=== PATIENT | female | born 1970 | race Caucasian/White ===

== ENCOUNTER → 2019-02-07 | Outpatient (CLI) | payer OTHER ==
[~2019-02-07] MED LIST: CETI5TAB2 PO; FENO54TA PO; LEXAPRO10 MG PO; METF500T16 PO; NAPR220C62 PO
--- NOTE | 2019-02-07 14:27 | KCIC ---
Bilateral digital screening mammograms: Reason for examination: Routine screening. Comparison is made to previous studies dated 08/05/2015 and 06/01/2014. Interpretation was made with the benefit of CAD. The skin and nipples show no abnormalities. No abnormal axillary lymph nodes are seen. The breast parenchyma shows scattered fibroglandular density. (Breast density: Category B.) There is a small nodular parenchymal density laterally in the left breast on cc view with no definite correlate on oblique view. Further evaluation with coned compression views and ultrasound is recommended. There are no other dominant masses, suspicious calcifications or architectural distortions. Impression: Small nodular density seen laterally on the left cc view with no definite correlate on MLO view. Recommend further evaluation with coned compression views and ultrasound. BI-RADS Category 0: Incomplete. Needs additional imaging evaluation. "Our facility is accredited by the [employer] Mammography [employer]." This patient's information has been entered into a reminder system for the patient to be notified with the results of her examination and a target date for the next mammogram. Electronically signed by: Katarina Adan MD (02/07/2019 2:24 PM) [id number]
--- NOTE | 2019-02-07 15:26 | KCIC ---
MRI study of the right forearm Clinical indications: Right forearm pain. Reduced range of motion and reduced hand strength. TECHNIQUE: Noncontrast MRI sequences of the right forearm were performed in all 3 planes. FINDINGS: No bone marrow edema or marrow infiltrative process or fracture is seen. There is a periarticular ganglion cyst measuring 21 mm in size just anterior to the radial scaphoid joint. It is located just lateral to and deep to the flexor carpi radialis tendon. No tenosynovitis is seen. No tendon rupture is evident. No muscle edema or soft tissue edema is seen. No olecranon bursitis is evident. IMPRESSION: No fracture or marrow infiltrative process is seen. Anterior lateral periarticular ganglion cyst of the right wrist. Electronically signed by: Prakash Black MD (02/07/2019 3:23 PM) [email or web address]
== END | disposition home or self-care (01) ==
LOC: KCIC MRI 09:44
PROVIDERS: ATTEND Family Medicine
DX: Z12.31 Encounter for screening mammogram for malignant neoplasm of breast (principal); M67.431 Ganglion, right wrist
CPT/HCPCS: 73218; 77067

== ENCOUNTER → 2019-02-16 | Outpatient (CLI) | payer OTHER ==
--- NOTE | 2019-02-16 17:11 | KCIC ---
Left breast diagnostic digital mammogram: Reason for examination: Nodular density on screening mammogram. Comparison is made to mammographic exam dated 02/07/2019. Coned compression views were obtained in CC and lateral projections. With these additional views, the area of nodularity does not appear to be as prominent. Further evaluation however with ultrasound will follow. IMPRESSION: Continued presence of some nodularity in the lateral left breast which does not appear to be as prominent as on previous exam. Ultrasound to follow. BI-RADS Category 0: Incomplete. Needs additional imaging evaluation. Left breast ultrasound: Ultrasound examination of the left breast and axilla was performed. In the 2:00 position 5 cm from the nipple, there is a small fibrocystic type lesion in parallel orientation measuring 5.8 mm in greatest dimension. In the 3:00 position 5 cm from the nipple, there is a small 3.8 mm hypoechoic fibrocystic type lesion present. No other cystic or solid nodules are seen. No abnormal appearing lymph nodes are seen in the axilla. IMPRESSION: Small benign-appearing fibrocystic type lesions at the 2:00 and 3:00 positions which are subcentimeter in size. Recommend reevaluation with ultrasound in 6 months. BI-RADS Category 3: Probably Benign. "Our facility is accredited by the [employer] Mammography [employer]." This patient's information has been entered into a reminder system for the patient to be notified with the results of her examination and a target date for the next mammogram. Electronically signed by: Katarina Adan MD (02/16/2019 5:08 PM) [id number]
== END | disposition home or self-care (01) ==
LOC: KCIC MAMMO 12:41
PROVIDERS: ATTEND Family Medicine
DX: R92.8 Other abnormal and inconclusive findings on diagnostic imaging of breast (principal)
CPT/HCPCS: 76641; 77065

== ENCOUNTER → 2019-09-18 | Outpatient (CLI) | payer OTHER ==
--- NOTE | 2019-09-18 08:35 | RAD ---
DATE: 09/18/2019 7:58 AM EXAM: BREAST ultrasound LEFT HISTORY: Six-month follow-up probably benign nodules in the left breast COMPARISON: Bilateral screening mammogram of 02/07/2019 and left digital diagnostic mammogram of 02/16/2019 and limited left breast ultrasound of 02/16/2019. Technique: Targeted ultrasound of the left breast in the area of previous sonographic interest was performed using grayscale and color Doppler imaging. FINDINGS: Targeted ultrasound of the left breast reveals slight interval decrease in size of the oval circumscribed parallel orientation nodule at the left 3:00 position 5 cm from the nipple previously measuring 3.8 mm, now measuring 2.8 mm. In addition, the circumscribed oval parallel orientation nodule at the left 2 o'clock position 5 cm from the nipple shows slight interval decrease in size as well from 5.8 mm previously now to 5.1 mm. IMPRESSION: Benign nodules in the left breast showing gradual interval decrease in size. No findings suspicious for malignancy. BI-RADS CATEGORY: 2 BENIGN FINDING(S) RECOMMENDED FOLLOW-UP: 6M 6 MONTH FOLLOW-UP Annual screening mammography is recommended, unless clinically indicated sooner based on symptoms or change in physical exam. She'll be due for bilateral mammographic screening in 6 months. PQRS compliance statement: Patient information was entered into a reminder system with a target due date 02/09/2020 for the next mammogram.
== END | disposition home or self-care (01) ==
LOC: US 07:45
PROVIDERS: ATTEND Family Medicine
DX: N63.21 Unspecified lump in the left breast, upper outer quadrant (principal)
CPT/HCPCS: 76641

== ENCOUNTER → 2019-11-17 | Outpatient (CLI) | payer OTHER ==
[~2019-11-17] MED LIST changes: +DOCU-109 PO; +HYDR-3164 PO; +ONDA8TAB9 PO
== END | disposition home or self-care (01) ==
LOC: LAB 14:57
PROVIDERS: ATTEND Orthopaedic Surgery Sports Medicine
DX: Z01.818 Encounter for other preprocedural examination (principal); Z11.59 Encounter for screening for other viral diseases
CPT/HCPCS: U0003-CS

== ENCOUNTER 2019-11-22 07:47 | Day surgery (SDC) | payer OTHER ==
[~2019-11-22] VITALS: Ht 162.6 cm; Wt 72.1 kg
[~2019-11-22 07:47] MED LIST changes: -DOCU-109 PO; -HYDR-3164 PO; +HYDROmorphone 2 MG/ML VIAL IV PRN; +IV RINGERS,LACTATED 1000ML 1,000 ML IV SCH; +MORPHINE SULFATE 2 MG/ML VIAL. IV PRN; -ONDA8TAB9 PO; +PROCHLORPERAZINE 10 MG/2 ML VIAL. IV PRN; +ceFAZolin SODIUM IV Push 1 GM VIAL. IVP PRN; +fentaNYL PF VIAL 100 MCG/2 ML VIAL IV PRN
[2019-11-22] MEDS ORDERED: INSULIN LISPRO 100 UNIT/ML 3ML VIAL for OP,RR ONLY. SQ PRN (08:00)
[2019-11-22] MEDS ORDERED: INSULIN LISPRO 100 UNIT/ML 3ML VIAL for OP,RR ONLY. SQ ONE (08:20)
--- NOTE | 2019-11-22 08:22 | DISCH ---
DISCHARGE INSTRUCTIONS Condition on Discharge Condition on Discharge: Stable Activity After Discharge Activity Instructions for Disc: Other ROM activity Other activity instructions: Keep elevated, wiggle fingers Bathing Instructions: Shower-keep dressing dry Weight Bearing Status after Di: As tolerated Diet after Discharge Diet after Discharge: Regular Wound Incision Care Wound/Incision Care: Ice to area for comfort, Keep wound/cast CDI, Keep wound elevated Other wound/incision instructi: Okay to change dressing after [address] after DC Call your doctor for: Concerns you may have Follow-Up Follow up with: Nilda in 2 wks FABIAN JUAREZ II, MD Nov 22, 2019 08:22
[2019-11-22] MEDS ORDERED: fentaNYL PF VIAL 100 MCG/2 ML VIAL ONE ×2 (09:11→10:20)
[2019-11-22] MEDS ORDERED: LIDOCAINE 2% PF 5 ML VIAL. ONE (09:11)
[2019-11-22] MEDS ORDERED: PROPOFOL 10 MG/ML (20ML) VIAL. IV ONE (09:11)
--- NOTE | 2019-11-22 09:56 | PDOC4 ---
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 I had seen and evaluated her in my outpatient clinic. An EMG had been performed and was consistent with the preoperative diagnosis. She had tried conservative therapies without any relief. We had a discussion of the risks, benefits, and alternatives to the above surgery and she elected to proceed. Description of procedure: Patient was greeted in the preoperative area by myself the correct extremity was verified and marked. She was taken to the operative suite and antibiotics were started as she was brought back. Once in the operating, she was transferred gently supine to the operating room table and secured bed with all pressure points padded. She then had placement of a [place] block by the anesthesiology team followed by IV sedation. We then proceeded prep and drape right upper extremity in her usual sterile fashion and conducted our standard preoperative timeout. After this, I made an incision with a scalpel from a distal wrist crease into her hand through a palmar wrist crease. I then spread the subcutaneous tissues dissected with mosquitoes. I then placed my self-retaining retractor and transected the palmar fascia in line with the skin incision. I identified the transverse carpal ligament and releases sharply with a scalpel. I then placed a Ragnell retractor in the distal portion of the incision, spread above and below small remaining portion of the ligament and released it with tenotomy's. I then repeated this maneuver in an ulnar directed fashion to release the distal antebrachial fascia. I then palpated along the course of the nerve with the tip of the tenotomies to help contract accomplished a complete release. After this the wound was irrigated, and hemostasis was ensured with bipolar cautery. Skin was then closed with simple interrupted 3-0 nylon. A soft sterile bulky dressing was then applied. She tolerated surgery well. No complications. All counts correct x2 prior to wound closure. Procedure conducted under loupe magnification. At the inclusion, she is awake from her sedation and transferred gently supine to the recovery room cart and taken to PACU in stable and extubated condition. Postoperative plan is to discharge her home, activity as tolerated. JJ JUAREZ II, MD Nov 22, 2019 09:56
[2019-11-22] MEDS ORDERED: HYDR-3164 PO (10:23)
[2019-11-22] MEDS ORDERED: DOCU-109 PO (10:23)
[2019-11-22] MEDS ORDERED: ONDA8TAB9 PO (10:24)
[2019-11-22] MEDS ORDERED: HYDROcodone/APAP 5/325MG 1 TAB TABLET ONE (10:28)
[2019-11-22 10:39] VITALS: BP 131/63
[2019-11-22] MEDS ORDERED: HYDROcodone/APAP 5/325MG 1 TAB TABLET PO ONE (11:00)
== END 2019-11-22 11:04 | disposition home or self-care (01) ==
LOC: SURG 07:47
PROVIDERS: ATTEND Orthopaedic Surgery Sports Medicine
DX: G56.01 Carpal tunnel syndrome, right upper limb (principal); M25.531 Pain in right wrist; E66.9 Obesity, unspecified; Z68.37 Body mass index [BMI] 37.0-37.9, adult; Z79.84 Long term (current) use of oral hypoglycemic drugs; Z79.899 Other long term (current) drug therapy; E11.9 Type 2 diabetes mellitus without complications; F32.9 Major depressive disorder, single episode, unspecified; Z85.41 Personal history of malignant neoplasm of cervix uteri; E78.5 Hyperlipidemia, unspecified; Z98.51 Tubal ligation status; Z90.710 Acquired absence of both cervix and uterus; Z98.890 Other specified postprocedural states; Z83.3 Family history of diabetes mellitus; Z82.49 Family history of ischemic heart disease and other diseases of the circulatory system; G47.419 Narcolepsy without cataplexy
CPT/HCPCS: 64721; 82962; J0690; J1815; J2704; J3010

== ENCOUNTER → 2020-11-25 | Outpatient (CLI) | payer OTHER ==
[~2020-11-25] MED LIST changes: +DOCU-109 PO; +HYDR-3164 PO; -HYDROmorphone 2 MG/ML VIAL IV PRN; -IV RINGERS,LACTATED 1000ML 1,000 ML IV SCH; -MORPHINE SULFATE 2 MG/ML VIAL. IV PRN; +ONDA8TAB9 PO; -PROCHLORPERAZINE 10 MG/2 ML VIAL. IV PRN; -ceFAZolin SODIUM IV Push 1 GM VIAL. IVP PRN; -fentaNYL PF VIAL 100 MCG/2 ML VIAL IV PRN
--- NOTE | 2020-11-26 09:09 | SLEEP ---
DATE OF STUDY: 11/25/2020 OBJECTIVE: The patient is a 50-year-old female with known sleep apnea who has an old machine and is complaining of excessive somnolence. This is a BiPAP titration study. Height 5 feet 4 inches, weight 170 pounds, body mass index 29, Clubb sleep score 16. INTERPRETATION: Sleep architecture is characterized by a sleep efficiency of 86% across the 8.5 hours of recording time. Stage volumes are appropriate for age. Sleep onset latency is 12.5 minutes. Respiratory monitoring shows a total of 44 events for an apnea-hypopnea index, overall of 6.0 events per hour of sleep. The patient was started out on her current pressure of 14/10 cm of BiPAP. On the setting, most of the apneas are central in nature. A higher setting was tried, 16/12, with continued central apneas. The minimum oxygen saturation was 95%. Periodic limb movements of sleep occur at the rate of 58 events per hour of sleep, zero events per hour of sleep associated with arousal. Occasional premature ventricular contractions are observed. IMPRESSION: Abnormal polysomnogram showing obstructive sleep apnea-hypopnea, which should be treatable still on her BiPAP setting of 14/10 using a Respironics Dreamware full face mask, small size. RECOMMENDATIONS: 1. We will attempt to arrange a new machine with this setting for the patient. 2. She should avoid sedatives and alcohol and pursue weight loss. Thank you, for letting us help with the patient's care. MOHIT DR: Juani TID: [id number] CC: MIO CLARK MD
== END ==
LOC: RT 19:07
PROVIDERS: ATTEND Psychiatry & Neurology Neurology with Special Qualifications in Child Neurology
DX: G47.33 Obstructive sleep apnea (adult) (pediatric) (principal)
CPT/HCPCS: 95811

== ENCOUNTER → 2021-03-13 | Outpatient (CLI) | payer OTHER ==
--- NOTE | 2021-03-13 14:25 | KCIC ---
Bilateral digital screening mammograms with 3-D tomosynthesis: Reason for examination: Routine screening. Comparison is made to previous studies dated back to 06/01/2014. Bilateral mammograms in CC and oblique projections were obtained with 2-D imaging and 3-D tomosynthes is imaging on a Siemens Inspiration unit and reviewed on the workstation. Interpretation was made wit h the benefit of CAD. The skin and nipples show no abnormalities. No abnormal axillary lymph nodes are seen. The breast par enchyma shows scattered fatty and fibroglandular density. (Breast density: Category B.) There are joe cifications in the upper outer quadrant of the right breast at approximately the 10:00 B position. Th alberto may be vascular. Further evaluation with coned compression magnification views is recommended. Th ere are no other dominant masses, suspicious calcifications or architectural distortion. Impression: Small cluster of microcalcifications at the 10:00 B position of the right breast. These may be vascul ar. Recommend further evaluation with coned compression magnification views. BI-RAD Category 0: Incomplete. Needs additional imaging evaluation. "Our facility is accredited by the [employer] Mammography Program." This patient's information has been entered into a reminder system for the patient to be notified wit h the results of her examination and a target date for the next mammogram. Electronically signed by: Katarina Adan MD (03/13/2021 2:23 PM) [email or web address]
== END ==
LOC: KCIC MAMMO 13:35
PROVIDERS: ATTEND Family Medicine
DX: Z12.31 Encounter for screening mammogram for malignant neoplasm of breast (principal)
CPT/HCPCS: 77063; 77067

== ENCOUNTER → 2021-04-10 | Outpatient (CLI) | payer OTHER ==
--- NOTE | 2021-04-10 12:29 | KCIC ---
Right breast diagnostic digital mammograms: Reason for examination: Calcifications on screening mammogram. Comparison is made to mammographic exam dated 03/13/2021 and 02/07/2019. Coned compression magnification views were obtained in CC and true lateral projection. There is a cluster of 4 calcifications which appear to be located at the 10:00 C position. When bennie red to previous exams however, the calcifications appear to be relatively stable. IMPRESSION: Clustered calcifications at the 10:00 C position of the right breast which appear to be stable and ar e probably benign but continued 6 month mammographic follow-up is recommended to verify stability. BI-RADS Category 3: Probably Benign. "Our facility is accredited by the [employer] Mammography [employer]." This patient's information has been entered into a reminder system for the patient to be notified wit h the results of her examination and a target date for the next mammogram. Electronically signed by: Katarina Adan MD (04/10/2021 12:27 PM) [email or web address]
== END ==
LOC: KCIC MAMMO 10:10
PROVIDERS: ATTEND Family Medicine
DX: R92.1 Mammographic calcification found on diagnostic imaging of breast (principal)
CPT/HCPCS: 77065